=== PATIENT | female | born 1950 | race Asian ===

== ENCOUNTER 2018-01-15 12:10 | Inpatient (IN) | payer MEDICAID ==
[2018-01-15 12:41] LABS: Hematocrit 41.8 % (30.3-42.9); Mean Corpuscular HGB Conc 34 % (30-34); Mean Corpuscular Hemoglobin 31 pg (28-32); Mean Corpuscular Volume 91 fl (79-97); Platelet Count 313 K/mm3 (140-440); Red Blood Count 4.57 M/mm3 (3.65-5.03); Red Cell Distribution Width 12.7 % (13.2-15.2)
[2018-01-15 12:53] LABS: Alanine Aminotransferase 11 units/L (7-56); Albumin 4.3 g/dL (3.9-5); BUN/Creatinine Ratio 19; Blood Urea Nitrogen 13 mg/dL (7-17); Calcium 9.4 mg/dL (8.4-10.2); Hemolysis Index 51
--- NOTE | 2018-01-15 16:27 | Cat Scan Report ---
FINAL REPORT EXAM: CT ABDOMEN PELVIS W CON HISTORY: RLQ MASS TECHNIQUE: Following administration of GI and IV contrast axial helical imaging was performed through the abdomen and pelvis with sagittal and coronal reformatted images obtained. Delayed axial images were also obtained through the abdomen and pelvis. Comparison: None FINDINGS: The lung bases are without infiltrate, pneumothorax or pleural fluid collection. The heart appears to be enlarged. There is evidence of fatty infiltration/steatosis of the liver. The spleen, pancreas, kidneys and adrenal glands are unremarkable in appearance. The gallbladder is moderately distended and unremarkable in appearance. The appendix is enlarged with increased thickness of the wall and increased caliber of approximately 17 millimeters. There is moderate surrounding inflammatory/phlegmonous change. There is edema in the wall of the cecum at the origin of the appendix. There are prominent lymph nodes in the mesentery and right lower quadrant. The largest measures approximately 12 millimeters in size. These are nonspecific in appearance but are most likely inflammatory in nature. The bowel is otherwise normal caliber. There is no evidence of pneumoperitoneum or free fluid. The abdominal aorta is normal caliber. The urinary bladder is moderately distended and unremarkable in appearance. The uterus and adnexa are unremarkable in appearance. The bony structures are unremarkable in appearance. IMPRESSION: 1. Findings most consistent with the appearance of appendicitis. 2. Appearance of fatty infiltration/steatosis of the liver. 3. The heart appears to be enlarged.
[2018-01-15] MEDS ORDERED: ZOFRAN IV PRN (17:15)
[2018-01-15] MEDS ORDERED: SODIUM CHLORIDE FLUSH SYRINGE 10 ML IV PRN (17:15)
[2018-01-15] MEDS ORDERED: MORPHINE IV PRN (18:00)
[2018-01-15] MEDS: D5/0.45NS 1,000 ML IV SCH (19:58)
[2018-01-15] MEDS: MORPHINE IV PRN (20:05)
[2018-01-15] MEDS: SODIUM CHLORIDE FLUSH SYRINGE 10 ML IV SCH (21:37)
[2018-01-15] MEDS ORDERED: ZOSYN/NS 4.5GM/100ML 4.5 GM/100 ML VIAL IV SCH (22:00)
[2018-01-16] MEDS: D5/0.45NS 1,000 ML IV SCH ×2 (03:39→11:36)
[2018-01-16 08:59] LABS: Hematocrit 41.4 % (30.3-42.9); Lymphocytes # (Auto) 1.4 K/mm3 (1.2-5.4); Lymphocytes % (Auto) 21.5 % (13.4-35.0); Mean Corpuscular HGB Conc 34 % (30-34); Mean Corpuscular Hemoglobin 31 pg (28-32); Mean Corpuscular Volume 91 fl (79-97); Monocytes # (Auto) 0.7 K/mm3 (0.0-0.8); Monocytes % (Auto) 10.4 % (0.0-7.3); Platelet Count 261 K/mm3 (140-440); Red Blood Count 4.56 M/mm3 (3.65-5.03)
[2018-01-16 09:13] LABS: BUN/Creatinine Ratio 10; Blood Urea Nitrogen 7 mg/dL (7-17); Calcium 8.7 mg/dL (8.4-10.2); Hemolysis Index 5
--- NOTE | 2018-01-16 10:09 | Event Note ---
Date: 01/16/18 Received a consult for a phlegmon, It was called to me today by nursing staff. I am available over the phone. I called Dr Lora - covering physician to be sure he was aware of CT findings. Patient's vitals signs are stable, there is not fever or leukocytosis. I agree with gregory for now. I will check CRP. I made nursing aware I would be available over the phone. I will see patient on Thursday.
[2018-01-16] MEDS ORDERED: BENADRYL IV ONE (12:00)
--- NOTE | 2018-01-16 12:20 | Consultation ---
History of Present Illness - Reason for Consult Consult date: 01/16/18 medical management - History of Present Illness This is a 67 y/o female who presented to dr Heaton office with c/o RLQ abd pain which was going on for approximately the last 2 wks. She c/o Nausea but no vomiting. She was directly admitted form Dr Heaton office. CT abdomen/pelvis consistent with walled off, well contained appendiceal phlegmon, neg free air or free fluid. She is afebrile w/o any white count. Hospitalist service requested for medical management. Past History Past Medical History: No medical history Past Surgical History: No surgical history Social history: no significant social history Family history: no significant family history Medications and Allergies Allergies Allergy/AdvReac Type Severity Reaction Status Date / Time No Known Allergies Allergy Verified 01/15/18 17:15 Active Meds: Active Medications Dextrose/Sodium Chloride (D5/0.45ns) 1,000 mls @ 125 mls/hr IV DIRECT MIR Last Admin: 01/16/18 11:36 Dose: 125 mls/hr Metronidazole (Flagyl 500 Mg/100 Ml) 500 mg in 100 mls @ 100 mls/hr IV Q8HR MIR ; Protocol Levofloxacin/Dextrose (Levaquin 750mg/150ml) 750 mg in 150 mls @ 150 mls/hr IV Q24H MIR; Protocol Morphine Sulfate (Morphine) 2 mg IV Q3H PRN PRN Reason: Pain, Moderate (4-6) Last Admin: 01/15/18 20:05 Dose: 2 mg Morphine Sulfate (Morphine) 4 mg IV Q3H PRN PRN Reason: Pain , Severe (7-10) Last Admin: 01/16/18 08:33 Dose: 4 mg Ondansetron HCl (Zofran) 4 mg IV Q4H PRN PRN Reason: Nausea And Vomiting Sodium Chloride (Sodium Chloride Flush Syringe 10 Ml) 10 ml IV BID MIR Last Admin: 01/15/18 21:37 Dose: 10 ml Sodium Chloride (Sodium Chloride Flush Syringe 10 Ml) 10 ml IV PRN PRN PRN Reason: LINE FLUSH Review of Systems All systems: negative (nause and RLQ abdominal pain) Exam - Constitutional Vitals: Temp Pulse Resp BP Pulse Ox 98.2 F 75 18 136/73 96 01/16/18 08:03 01/16/18 08:03 01/16/18 08:03 01/16/18 08:03 01/16/18 08:03 General appearance: Present: no acute distress, well-nourished - EENT Eyes: Present: PERRL ENT: hearing intact, clear oral mucosa - Neck Neck: Present: supple, normal ROM - Respiratory Respiratory effort: normal Respiratory: bilateral: CTA - Cardiovascular Heart Sounds: Present: S1 & S2. Absent: rub, click - Extremities Extremities: pulses symmetrical, No edema Peripheral Pulses: within normal limits - Abdominal General gastrointestinal: Present: soft, tender, non-distended, normal bowel sounds Localized gastrointestinal: tender: RUQ - Integumentary Integumentary: Present: warm, dry, rash - Musculoskeletal Musculoskeletal: gait normal, strength equal bilaterally - Psychiatric Psychiatric: appropriate mood/affect, intact judgment & insight - Neurologic Neurologic: CNII-XII intact, moves all extremities Results - Labs CBC & Chem 7: 01/16/18 07:43 01/16/18 07:43 Labs: Abnormal lab results 01/15/18 01/15/18 01/16/18 Range/Units 12:31 12:31 07:43 RDW 12.7 L 13.0 L (13.2-15.2) % [place] % (Auto) 10.4 H (0.0-7.3) % Glucose (65-100) mg/dL Alkaline Phosphatase 139 H (35-129) units/L C-Reactive Protein (0.00-1.30) mg/dL 01/16/18 01/16/18 Range/Units 07:43 07:43 RDW (13.2-15.2) % [place] % (Auto) (0.0-7.3) % Glucose 104 H (65-100) mg/dL Alkaline Phosphatase (35-129) units/L C-Reactive Protein 2.30 H (0.00-1.30) mg/dL - Imaging and Cardiology CT scan - abdomen: report reviewed Assessment and Plan Acute appendicitis with appendiceal phlegmon - likely seconday to perforated appendicitis - Mx per surgery, cont abx, iv fluid for now HTN, BP stable for now Abdominal rash, likely allergic reaction - Agree changing abx to levaquin and flagyl - benadryl as needed DVT Px, SCD till surgery
[2018-01-16] MEDS ORDERED: LEVAQUIN 500MG/100ML 500 MG/100 ML BAG IV SCH (14:00)
[2018-01-16] MEDS: FLAGYL 500 MG/100 ML 500 MG/100 ML BAG IV SCH ×2 (15:14→22:01)
[2018-01-16] MEDS: LEVAQUIN 750MG/150ML 750 MG/150 ML BAG IV SCH (15:16)
--- NOTE | 2018-01-16 15:50 | Progress Note ---
Assessment and Plan 67 y/o female c/o RLQ abd pain for approximately the last 2 wks. c/o N but no vomiting Abd soft. localized RLQ tenderness with palpable mass CT consistent with walled off, well contained appendiceal phlegmon. neg free air or free fluid afebrile wbc 6.6 imp well contained appendiceal phlegmon seconday to perf appendicitis from probably a couple of weeks duration. admit IV antibiotics ID eval clinically stable will attempt primary antibiotic Rx to attempt to reduce phlegmon size in hopes of avoiding R hemicolectomy. keep npo monitor clinically. Dr. Lora will be covering me thru wed Selected Entries 01/16/18 12:00 Temperature 98.3 F Pulse Rate 82 Respiratory 18 Rate Blood Pressure 140/67 [Left] Laboratory Tests 01/15/18 01/16/18 01/16/18 12:31 07:43 07:43 WBC 8.3 6.6 Hgb 14.0 Hct 41.4 Sodium 142 Potassium 3.6 Chloride 101.3 Carbon Dioxide 27 BUN 7 Creatinine 0.7 Objective Vital Signs - 12hr 01/16/18 01/16/18 01/16/18 04:37 08:03 12:00 Temperature 98.5 F 98.2 F 98.3 F Pulse Rate 70 75 82 Respiratory 20 18 18 Rate Blood Pressure 143/77 136/73 Blood Pressure 140/67 [Left] O2 Sat by Pulse 95 96 99 Oximetry - Labs 01/16/18 07:43 01/16/18 07:43 Diabetes panel 01/16/18 Range/Units 07:43 Sodium 142 (137-145) mmol/L Potassium 3.6 (3.6-5.0) mmol/L Chloride 101.3 (98-107) mmol/L Carbon Dioxide 27 (22-30) mmol/L BUN 7 (7-17) mg/dL Creatinine 0.7 (0.7-1.2) mg/dL Glucose 104 H (65-100) mg/dL Calcium 8.7 (8.4-10.2) mg/dL Calcium panel 01/16/18 Range/Units 07:43 Calcium 8.7 (8.4-10.2) mg/dL Pituitary panel 01/16/18 Range/Units 07:43 Sodium 142 (137-145) mmol/L Potassium 3.6 (3.6-5.0) mmol/L Chloride 101.3 (98-107) mmol/L Carbon Dioxide 27 (22-30) mmol/L BUN 7 (7-17) mg/dL Creatinine 0.7 (0.7-1.2) mg/dL Glucose 104 H (65-100) mg/dL Calcium 8.7 (8.4-10.2) mg/dL Adrenal panel 01/16/18 Range/Units 07:43 Sodium 142 (137-145) mmol/L Potassium 3.6 (3.6-5.0) mmol/L Chloride 101.3 (98-107) mmol/L Carbon Dioxide 27 (22-30) mmol/L BUN 7 (7-17) mg/dL Creatinine 0.7 (0.7-1.2) mg/dL Glucose 104 H (65-100) mg/dL Calcium 8.7 (8.4-10.2) mg/dL
--- NOTE | 2018-01-16 17:24 | History and Physical Report ---
ADMITTING DIAGNOSIS: Rule out appendiceal phlegmon. HISTORY OF PRESENT ILLNESS: The patient is a pleasant 67-year-old female who was seen in the office yesterday afternoon with the chief complaint of approximately 2-week history of right lower quadrant abdominal pain. Denied any vomiting though she states she has had some nausea but overall has been keeping her food down without signs of vomiting. PAST MEDICAL HISTORY: Pertinent for hypertension. PAST SURGICAL HISTORY: Negative. ALLERGIES: No known allergies. MEDICATIONS: Atenolol? FAMILY HISTORY: Negative. SOCIAL HISTORY: Denies any smoking or drinking. REVIEW OF SYSTEMS: Noncontributory. PHYSICAL EXAMINATION: GENERAL: At this time reveals the patient to be awake, alert, cooperative and feeling somewhat better from yesterday evening. As previously mentioned, the patient was seen in the office yesterday evening and sent over to the ER for further workup. At that time, a CT was done, which revealed an appendiceal phlegmon. VITAL SIGNS: Show her to currently be afebrile, temperature 98.3, blood pressure is 140/67, pulse of 82, respirations of 18. HEENT: Pupils are equal and reactive to light and accommodation. Sclerae are nonicteric. NECK: Supple. No thyromegaly or adenopathy. CHEST: Lungs are clear to auscultation and percussion. HEART: Normal sinus rhythm. No gross murmurs. ABDOMEN: Examination of the abdomen reveals to be moderately obese and soft. There is localized right lower quadrant tenderness although improved from my examination yesterday. There is a palpable mass which again was noted yesterday. Bowel sounds are present. EXTREMITIES: Show full range of motion, no edema or cyanosis. NEUROLOGIC: Examination is grossly within normal limits. LABORATORY AND DIAGNOSTIC DATA: Lab work at present includes CBC which shows a white count of 6.6, down from 8.3 on admission. H and H is stable at 14 and 41.4. Electrolytes are essentially normal. LFTs are also normal. CT scan of the abdomen as previously mentioned reveals a walled off appendiceal phlegmon. No evidence of any free fluid or free air. IMPRESSION AND PLAN: At this time is that of rule out appendiceal phlegmon most likely from a perforated and walled off appendicitis from approximately 2 weeks ago when the patient's symptoms began. Currently, the patient is clinically stable, afebrile and no leukocytosis. We will attempt IV antibiotic treatment as primary treatment at this time in hopes of reducing the size of the phlegmon and hopefully preventing to have to proceed with a right hemicolectomy at this time. I will continue treatment as long as the patient is stable and attempt a semi-elective appendectomy in the near future. However, the patient clinically regresses and begins having temperatures or leukocytosis then would have to contemplate proceeding with exploratory laparotomy and possible right hemicolectomy at this time. ID evaluation will also be obtained. JOB# [id number] NYDIA/EDILMA
[2018-01-16] MEDS: BENADRYL IV PRN (22:01)
[2018-01-16] MEDS: MORPHINE IV PRN (22:01)
[2018-01-16] MEDS: SODIUM CHLORIDE FLUSH SYRINGE 10 ML IV SCH (22:02)
[2018-01-17] MEDS: D5/0.45NS 1,000 ML IV SCH ×2 (03:41→14:05)
[2018-01-17] MEDS: FLAGYL 500 MG/100 ML 500 MG/100 ML BAG IV SCH ×3 (06:00→21:37)
[2018-01-17] MEDS: SODIUM CHLORIDE FLUSH SYRINGE 10 ML IV SCH ×2 (10:00→21:38)
[2018-01-17] MEDS ORDERED: APRESOLINE IV PRN (14:20)
--- NOTE | 2018-01-17 14:20 | Progress Note ---
Assessment and Plan Acute appendicitis with appendiceal phlegmon - likely seconday to perforated appendicitis - Mx per surgery, cont abx, iv fluid for now HTN, place on clonidine patch Abdominal rash, likely allergic reaction - changed zosyn to levaquin and flagyl - benadryl as needed DVT Px, SCD till surgery Subjective Date of service: 01/17/18 Interval history: Pt seen and examined denies any abdominal pain Objective - Exam Narrative Exam: General appearance: Present: no acute distress, well-nourished - EENT Eyes: Present: PERRL ENT: hearing intact, clear oral mucosa - Neck Neck: Present: supple, normal ROM - Respiratory Respiratory effort: normal Respiratory: bilateral: CTA - Cardiovascular Heart Sounds: Present: S1 & S2. Absent: rub, click - Extremities Extremities: pulses symmetrical, No edema Peripheral Pulses: within normal limits - Abdominal General gastrointestinal: Present: soft, nontender, non-distended, normal bowel sounds - Integumentary Integumentary: Present: warm, dry, rash - Musculoskeletal Musculoskeletal: gait normal, strength equal bilaterally - Psychiatric Psychiatric: appropriate mood/affect, intact judgment & insight - Neurologic Neurologic: CNII-XII intact, moves all extremities - Constitutional Vitals: Vital Signs - 12hr 01/17/18 01/17/18 07:07 11:15 Temperature 98.2 F 98.3 F Pulse Rate 75 76 Respiratory 16 18 Rate Blood Pressure 117/63 159/73 O2 Sat by Pulse 92 95 Oximetry - Labs CBC & Chem 7: 01/16/18 07:43 01/16/18 07:43
[2018-01-17] MEDS: LEVAQUIN 750MG/150ML 750 MG/150 ML BAG IV SCH (15:30)
[2018-01-17] MEDS ORDERED: CATAPRES-TTS PATCH TD SCH (22:00)
[2018-01-18] MEDS: D5/0.45NS 1,000 ML IV SCH ×3 (00:31→20:44)
[2018-01-18] MEDS: FLAGYL 500 MG/100 ML 500 MG/100 ML BAG IV SCH ×3 (05:17→22:40)
[2018-01-18] MEDS: SODIUM CHLORIDE FLUSH SYRINGE 10 ML IV SCH ×3 (10:18→22:40)
--- NOTE | 2018-01-18 10:40 | Consultation ---
History of Present Illness - Reason for Consult Consult date: 01/18/18 appendiceal phlegmon Requesting physician: HCAIM GOODEN - History of Present Illness 67 years old female with history of HTN, originally from [place], came to [facility] 8 years ago, admitted on 01/15/18 due to 2 week-history of abdominal pain. Patient reports that 2 weeks ago she experienced 10 out of 10 acute right lower quadrant abdominal pain associated with mild nausea. Denies vomiting or fever. She thought she pulled a muscle after lifting a heavy object. Pain resolved by itself. She kept a good appetite. She then went to visit his PCP Dr Amador who told her about r/o appendicitis. A CT abdomen/pelvis showed appendicitis with well contained appendiceal phlegmon, neg free air or free fluid. In the ED, initial temperature 90.8, heart rate 74, respiration 18, O2 sat 98%, blood pressure 196/91. Initial white count on 8.3. Hemoglobin 14. Platelets 313. Creatinine is 0.7. CRP 2.3. Patient was placed on Zosyn IV, unfortunately developed an erythematous pruritic rash on Zosyn. Microbiology: Blood cultures: Urine cultures: Respiratory cultures: Wound cultures: Stool cultures: Other: Current Antimicrobials: Levaquin 01/17 Metronidazole 01/17 Previous Antimicrobials: Zosyn Past History Past Medical History: No medical history Past Surgical History: No surgical history Social history: no significant social history Family history: no significant family history Medications and Allergies Allergies Allergy/AdvReac Type Severity Reaction Status Date / Time No Known Allergies Allergy Verified 01/15/18 17:15 Home Medications Medication Instructions Recorded Confirmed Last Taken Type Atenolol [Tenormin] 100 mg PO DAILY 01/17/18 01/17/18 Unknown History Active Meds: Active Medications Clonidine HCl (Catapres-Tts Patch) 0.1 mg TD QWEEK MIR Last Admin: 01/17/18 21:43 Dose: 0.1 mg Diphenhydramine HCl (Benadryl) 50 mg IV Q6H PRN PRN Reason: Itching Last Admin: 01/16/18 22:01 Dose: 50 mg Hydralazine HCl (Apresoline) 5 mg IV Q30MIN PRN PRN Reason: Hypertension Dextrose/Sodium Chloride (D5/0.45ns) 1,000 mls @ 125 mls/hr IV DIRECT MIR Last Admin: 01/18/18 10:17 Dose: 125 mls/hr Metronidazole (Flagyl 500 Mg/100 Ml) 500 mg in 100 mls @ 100 mls/hr IV Q8HR MIR ; Protocol Last Admin: 01/18/18 05:17 Dose: 100 mls/hr Levofloxacin/Dextrose (Levaquin 750mg/150ml) 750 mg in 150 mls @ 150 mls/hr IV Q24H MIR; Protocol Last Admin: 01/17/18 15:30 Dose: 150 mls/hr Morphine Sulfate (Morphine) 2 mg IV Q3H PRN PRN Reason: Pain, Moderate (4-6) Last Admin: 01/16/18 22:01 Dose: 2 mg Morphine Sulfate (Morphine) 4 mg IV Q3H PRN PRN Reason: Pain , Severe (7-10) Last Admin: 01/16/18 08:33 Dose: 4 mg Ondansetron HCl (Zofran) 4 mg IV Q4H PRN PRN Reason: Nausea And Vomiting Last Admin: 01/16/18 22:04 Dose: 4 mg Sodium Chloride (Sodium Chloride Flush Syringe 10 Ml) 10 ml IV BID MIR Last Admin: 01/18/18 10:18 Dose: 10 ml Sodium Chloride (Sodium Chloride Flush Syringe 10 Ml) 10 ml IV PRN PRN PRN Reason: LINE FLUSH Review of Systems All systems: negative (as per HPI) Physical Examination - Physical Exam Narrative exam: General appearance: Alert in NAD, conversant Eyes: anicteric sclerae, moist conjunctivae; no lid-lag; PERRLA HENT: Atraumatic; oropharynx clear Neck: Trachea midline; supple, no thyromegaly or lymphadenopathy Lungs: CTA, with normal respiratory effort and no intercostal retractions CV: RRR, no murmurs Abdomen: Soft, mild RLQ tenderness, no rebound Extremities: No peripheral edema or extremity lymphadenopathy Skin: Normal temperature, turgor and texture; no rash, ulcers or subcutaneous nodules Psych: Appropriate affect, alert and oriented to person, place and time. Neuro: alert and oriented x 3. Moving all extermities Lines: No CVL / PICC - Constitutional Vitals: Vital Signs Temp Pulse Resp BP Pulse Ox 98.1 F 69 18 159/85 95 01/18/18 08:17 01/18/18 08:17 01/18/18 08:17 01/18/18 08:17 01/18/18 08:17 Temperature -Last 24 Hours Temperature 98.1 F Temperature 98.4 F Temperature 98.5 F Temperature 98.0 F Temperature 98 F Temperature 98.3 F Results - Labs CBC & Chem 7: 01/16/18 07:43 01/16/18 07:43 Assessment and Plan Assessment: 1) Missed appendicitis with Appendiceal phlegmon -CT abdomen/pelvis showed appendicitis with well contained appendiceal phlegmon about 1.7 cm, neg free air or free fluid -CRP 2.3 -no leukocytosis, no fever 2) HTN 3) Rash due to Zosyn. Plan: -continue levaquin and flagyl -repeat CT in 1 week on 01/22 -upon discharge will continue levaquin 750 mg po qday and flagyl 500 mg po q8h total 14 days until 02/01 -ID clinic f/u on 01/28 Thank you for your consultation, will follow up with you. Dilcia Byrnes MD Infectious Diseases Specialist [facility] ([facility] M [phone] O [phone]
--- NOTE | 2018-01-18 13:21 | Progress Note ---
Subjective Narrative: Dr Washburn is seeing the Pt will see PRN , please call Objective Vital Signs - 12hr 01/18/18 01/18/18 03:48 08:17 Temperature 98.4 F 98.1 F Pulse Rate 69 69 Respiratory 18 18 Rate Blood Pressure 134/75 159/85 O2 Sat by Pulse 96 95 Oximetry - Labs 01/16/18 07:43 01/16/18 07:43
[2018-01-18] MEDS: LEVAQUIN 750MG/150ML 750 MG/150 ML BAG IV SCH (14:59)
[2018-01-18] MEDS: BENADRYL IV PRN (23:46)
--- NOTE | 2018-01-19 01:28 | Progress Note ---
Assessment and Plan Acute appendicitis with appendiceal phlegmon - likely secondary to perforated appendicitis - Mx per surgery, cont abx, iv fluid for now - ID consulted HTN, place on clonidine patch Abdominal rash, likely allergic reaction - changed zosyn to levaquin and flagyl - benadryl as needed DVT Px, SCD Subjective Date of service: 01/18/18 Interval history: Pt seen and examined denies any abdominal pain no fever Objective - Exam Narrative Exam: General appearance: Present: no acute distress, well-nourished - EENT Eyes: Present: PERRL ENT: hearing intact, clear oral mucosa - Neck Neck: Present: supple, normal ROM - Respiratory Respiratory effort: normal Respiratory: bilateral: CTA - Cardiovascular Heart Sounds: Present: S1 & S2. Absent: rub, click - Extremities Extremities: pulses symmetrical, No edema Peripheral Pulses: within normal limits - Abdominal General gastrointestinal: Present: soft, nontender, non-distended, normal bowel sounds - Integumentary Integumentary: Present: warm, dry, rash - Musculoskeletal Musculoskeletal: gait normal, strength equal bilaterally - Psychiatric Psychiatric: appropriate mood/affect, intact judgment & insight - Neurologic Neurologic: CNII-XII intact, moves all extremities - Constitutional Vitals: Vital Signs - 12hr 01/18/18 01/18/18 17:11 19:47 Temperature 99.0 F 98.1 F Pulse Rate 100 H 93 H Respiratory 18 20 Rate Blood Pressure 151/99 146/91 O2 Sat by Pulse 97 97 Oximetry - Labs CBC & Chem 7: 01/16/18 07:43 01/16/18 07:43
[2018-01-19] MEDS: FLAGYL 500 MG/100 ML 500 MG/100 ML BAG IV SCH ×3 (05:10→22:13)
[2018-01-19 05:27] LABS: Hematocrit 39.1 % (30.3-42.9); Hemoglobin 13.4 gm/dl (10.1-14.3); Mean Corpuscular HGB Conc 34 % (30-34); Mean Corpuscular Hemoglobin 30 pg (28-32); Mean Corpuscular Volume 89 fl (79-97); Platelet Count 254 K/mm3 (140-440); Red Cell Distribution Width 13.1 % (13.2-15.2)
[2018-01-19 05:51] LABS: BUN/Creatinine Ratio 5; Blood Urea Nitrogen 4 mg/dL (7-17); Calcium 8.8 mg/dL (8.4-10.2); Hemolysis Index 0
[2018-01-19] MEDS: D5/0.45NS 1,000 ML IV SCH ×2 (06:26→14:02)
[2018-01-19] MEDS: SODIUM CHLORIDE FLUSH SYRINGE 10 ML IV SCH (11:39)
--- NOTE | 2018-01-19 12:37 | Progress Note ---
Assessment and Plan Assessment and plan: Hospitalist Consult for Medical management of Hypertension Ms. Jang is 67 yo woman who speaks Georgian without any chronic medical problems who was sent from Dr. Estevez's office for direct admission for appendicitis * CT abd/pelvis IV contrast IMPRESSION: 1. Findings most consistent with the appearance of appendicitis. 2. Appearance of fatty infiltration/steatosis of the liver. 3. The heart appears to be enlarged. -HTN, stable: placed on clonidine patch and IV hydralazine Acute appendicitis with appendiceal phlegmon - likely secondary to perforated appendicitis - Mx per surgery, cont abx, iv fluid for now - OR today? - ID consulted Abdominal rash, likely allergic reaction - changed zosyn to levaquin and flagyl - benadryl as needed DVT Px, SCD History Interval history: Patient was seen and examined. Follow-up on current diagnosis of abd pains. Overnight uneventful. Patient denies any chest pain, shortness breath, nausea/ vomiting or severe headaches. Imaging, nursing note, chart, labs and old chart reviewed. Discussed with patient. Hospitalist Physical - Physical exam Narrative exam: GEN: WDWN, NAD, Awake, Alert, Orientated HEENT: NCAT, EOMI, PERRL, OP Clear NECK: supple, no adenopathy, no thyromegaly, no JVD CVS/HEART: RRR, normal S1S2, pulses present bilaterally CHEST/LUNGS: CTA B, Symmetrical chest expansion, good air entry bilaterally GI/Abdomen: soft, right lower tenderness, nondistended, good bowel sounds, no guarding or rebound /Bladder: no suprapubic tenderness, no CVA or paraspinal tenderness EXT/Skin: no c/c/e, no obvious rash MSK: FROM x 4 Neuro: CN 2-12 grossly intact, no new focal deficits Psych: calm - Constitutional Vitals: Temp Pulse Resp BP Pulse Ox 98.2 F 92 H 18 162/99 96 01/19/18 08:32 01/19/18 08:32 01/19/18 08:32 01/19/18 08:32 01/19/18 08:32 General appearance: Present: no acute distress, well-nourished Results - Labs CBC & Chem 7: 01/19/18 04:38 01/19/18 04:38 Labs: Laboratory Last Values WBC 5.5 K/mm3 (4.5-11.0) 01/19/18 04:38 RBC 4.40 M/mm3 (3.65-5.03) 01/19/18 04:38 Hgb 13.4 gm/dl (10.1-14.3) 01/19/18 04:38 Hct 39.1 % (30.3-42.9) 01/19/18 04:38 MCV 89 fl (79-97) 01/19/18 04:38 MCH 30 pg (28-32) 01/19/18 04:38 MCHC 34 % (30-34) 01/19/18 04:38 RDW 13.1 % (13.2-15.2) L 01/19/18 04:38 Plt Count 254 K/mm3 (140-440) 01/19/18 04:38 Lymph % (Auto) 21.5 % (13.4-35.0) 01/16/18 07:43 [place] % (Auto) 10.4 % (0.0-7.3) H 01/16/18 07:43 Eos % (Auto) 0.0 % (0.0-4.3) 01/16/18 07:43 Baso % (Auto) 0.0 % (0.0-1.8) 01/16/18 07:43 Lymph # 1.4 K/mm3 (1.2-5.4) 01/16/18 07:43 [place] # 0.7 K/mm3 (0.0-0.8) 01/16/18 07:43 Eos # 0.0 K/mm3 (0.0-0.4) 01/16/18 07:43 Baso # 0.0 K/mm3 (0.0-0.1) 01/16/18 07:43 Seg Neutrophils % 68.1 % (40.0-70.0) 01/16/18 07:43 Seg Neutrophils # 4.5 K/mm3 (1.8-7.7) 01/16/18 07:43 Sodium 147 mmol/L (137-145) H 01/19/18 04:38 Potassium 3.6 mmol/L (3.6-5.0) 01/19/18 04:38 Chloride 107.2 mmol/L (98-107) H 01/19/18 04:38 Carbon Dioxide 27 mmol/L (22-30) 01/19/18 04:38 Anion Gap 16 mmol/L 01/19/18 04:38 BUN 4 mg/dL (7-17) L 01/19/18 04:38 Creatinine 0.8 mg/dL (0.7-1.2) 01/19/18 04:38 Estimated GFR > 60 ml/min 01/19/18 04:38 BUN/Creatinine Ratio 5 % 01/19/18 04:38 Glucose 112 mg/dL (65-100) H 01/19/18 04:38 Calcium 8.8 mg/dL (8.4-10.2) 01/19/18 04:38 Total Bilirubin 0.20 mg/dL (0.1-1.2) 01/15/18 12:31 AST 20 units/L (5-40) 01/15/18 12:31 ALT 11 units/L (7-56) 01/15/18 12:31 Alkaline Phosphatase 139 units/L (35-129) H 01/15/18 12:31 C-Reactive Protein 2.30 mg/dL (0.00-1.30) H 01/16/18 07:43 Total Protein 7.9 g/dL (6.3-8.2) 01/15/18 12:31 Albumin 4.3 g/dL (3.9-5) 01/15/18 12:31 Albumin/Globulin Ratio 1.2 % 01/15/18 12:31
[2018-01-19] MEDS ORDERED: ZOFRAN IV PRN (14:31)
[2018-01-19] MEDS ORDERED: DEMEROL IV PRN (14:31)
[2018-01-19] MEDS ORDERED: TORADOL IV PRN (14:31)
[2018-01-19] MEDS ORDERED: LACTATED RINGERS 1,000 ML IV SCH ×2 (15:00)
[2018-01-19] MEDS ORDERED: VERSED IV NR (15:00)
[2018-01-19] MEDS ORDERED: ZEMURON IV ONE (15:00)
[2018-01-19] MEDS: LEVAQUIN 750MG/150ML 750 MG/150 ML BAG IV SCH (15:04)
[2018-01-19] MEDS ORDERED: SUBLIMAZE ONE ×2 (15:08→17:34)
[2018-01-19] MEDS ORDERED: ZOFRAN ONE (15:08)
[2018-01-19] MEDS ORDERED: DECADRON ONE (15:08)
[2018-01-19] MEDS ORDERED: DIPRIVAN 10 MG/ML IV ONE (15:08)
[2018-01-19] MEDS ORDERED: XYLOCAINE MPF 2% ONE (15:08)
--- NOTE | 2018-01-19 15:10 | Anesthesia Day of Surgery ---
Anesthesia Day of Surgery - Day of Surgery Patient Examined: Yes Patient H&P Reviewed: Yes Patient is NPO: Yes
[2018-01-19] MEDS ORDERED: MARCAINE 0.5% 0 ML INFILTRATI ONE (15:11)
--- NOTE | 2018-01-19 15:11 | Anesthesia Consultation ---
Anesthesia Consult and Med Hx Date of service: 01/19/18 - Airway Anesthetic Teeth Evaluation: Good ROM Head & Neck: Adequate Mental/Hyoid Distance: Adequate Mallampati Class: Class II Intubation Access Assessment: Probably Good - Pulmonary Exam CTA: Yes - Cardiac Exam Cardiac Exam: RRR - Pre-Operative Health Status ASA Pre-Surgery Classification: ASA2 Proposed Anesthetic Plan: General (GERD controlled, HTN, denies tob hx) - Pulmonary Hx Asthma: No COPD: No Hx Pneumonia: No - Endocrine Hx End Stage Renal Disease: No
[2018-01-19] MEDS ORDERED: ROBINUL ONE (17:27)
[2018-01-19] MEDS ORDERED: BLOXIVERZ ONE (17:27)
[2018-01-19] MEDS ORDERED: NACL 0.9% IR ONE (17:42)
[2018-01-19] MEDS: DILAUDID IV PRN ×2 (18:40→18:57)
--- NOTE | 2018-01-19 18:53 | Progress Note ---
Assessment and Plan Assessment: 1) Missed appendicitis with Appendiceal phlegmon -CT abdomen/pelvis showed appendicitis with well contained appendiceal phlegmon about 1.7 cm, neg free air or free fluid -CRP 2.3 -no leukocytosis, no fever 2) HTN 3) Rash due to Zosyn. Plan: -continue levaquin and flagyl -go to the OR today for lap appendectomy today -upon discharge will continue levaquin 750 mg po qday and flagyl 500 mg po q8h total 14 days until 02/01 Thank you for your consultation, will follow up with you. Dilcia Byrnes MD Infectious Diseases Specialist [facility] ([facility]) M [phone] O [phone] Subjective Date of service: 01/19/18 Principal diagnosis: appendicitis Interval history: Feels better, no fever. Microbiology: none Current Antimicrobials: Levaquin 01/17 Metronidazole 01/17 Previous Antimicrobials: Zosyn Objective - Exam Narrative Exam: General appearance: Alert in NAD, conversant Eyes: anicteric sclerae, moist conjunctivae; no lid-lag; PERRLA HENT: Atraumatic; oropharynx clear Neck: Trachea midline; supple, no thyromegaly or lymphadenopathy Lungs: CTA, with normal respiratory effort and no intercostal retractions CV: RRR, no murmurs Abdomen: Soft, mild RLQ tenderness, no rebound Extremities: No peripheral edema or extremity lymphadenopathy Skin: Normal temperature, turgor and texture; no rash, ulcers or subcutaneous nodules Psych: Appropriate affect, alert and oriented to person, place and time. Neuro: alert and oriented x 3. Moving all extermities Lines: No CVL / PICC - Constitutional Vitals: Vital Signs Temp Pulse Resp BP Pulse Ox 98.1 F 92 H 16 153/82 97 01/19/18 12:47 01/19/18 12:47 01/19/18 18:40 01/19/18 12:47 01/19/18 12:47 Temperature -Last 24 Hours Temperature 98.1 F Temperature 98.2 F Temperature 98.2 F Temperature 98.3 F Temperature 98.1 F - Labs CBC & Chem 7: 01/19/18 04:38 01/19/18 04:38 Labs: Abnormal lab results 01/19/18 01/19/18 Range/Units 04:38 04:38 RDW 13.1 L (13.2-15.2) % Sodium 147 H (137-145) mmol/L Chloride 107.2 H (98-107) mmol/L BUN 4 L (7-17) mg/dL Glucose 112 H (65-100) mg/dL
[2018-01-19] MEDS: MORPHINE IV PRN (20:31)
[2018-01-19] MEDS: BENADRYL IV PRN (20:31)
--- NOTE | 2018-01-20 02:21 | Operative Report ---
PREOPERATIVE DIAGNOSIS: Acute appendicitis. POSTOPERATIVE DIAGNOSIS: Acute appendicitis. SURGERY: Laparoscopic appendectomy. ANESTHESIA: General. BLOOD LOSS: Minimal. FINDINGS: The patient had a short, severely inflamed and coiled appendix. It was embedded within the retroperitoneum and loops of small intestines and had to dissect these slowly to reach the base of the appendix. We took picture of that. DESCRIPTION OF PROCEDURE: With the patient in supine position, after cleansing and draping in usual fashion, I made a small incision in the right lower quadrant, with the Veress needle, I was able to do CO2 of pressure 15 for which #5 trocar was inserted. With use of #5 camera, I was able to introduce 3 more trocars, one #10 in the infraumbilical area, another 5 in the mid lower abdomen, and another 5 in the left lower abdomen. Examination of the area showed the above, so I had slowly to dissect these bit by bit to reach the base of the appendix that was seen, it was about 5-6 mm. At that point, it was transected using the Endo-CARINE for that purpose. Then, the appendix was removed in toto with an EndoCatch. Bleeders were taken care for with the use of caudal cautery. The area was then irrigated with sterile normal saline, was very much satisfied. Then I removed the trocars one by one ascertaining no bleeding from the suture site. The fascia was then closed with #0 Vicryl [id number] and the skin incisions were closed with use of 4-0 Vicryl in the usual fashion. Bandages were applied. The patient was then transferred to the recovery room in good condition. We kept the Rodriguez and we will take it out tomorrow. JOB# [id number] TRISTAN/EDILMA
[2018-01-20] MEDS: MORPHINE IV PRN (04:24)
[2018-01-20] MEDS: FLAGYL 500 MG/100 ML 500 MG/100 ML BAG IV SCH ×2 (06:27→14:20)
--- NOTE | 2018-01-20 10:47 | Progress Note ---
Assessment and Plan Assessment: 1) Missed appendicitis with Appendiceal phlegmon -CT abdomen/pelvis showed appendicitis with well contained appendiceal phlegmon about 1.7 cm, neg free air or free fluid -CRP 2.3 -no leukocytosis, no fever -S/P lap appendectomy on 01/19 2) HTN 3) Rash due to Zosyn. Plan: -continue levaquin and flagyl -no cultures available -upon discharge will continue levaquin 750 mg po qday and flagyl 500 mg po q8h total 14 days until 02/01 Thank you for your consultation, will follow up with you. Dilcia Byrnes MD Infectious Diseases Specialist [facility] ([facility]) M [phone] O [phone] Subjective Date of service: 01/20/18 Principal diagnosis: appendicitis Interval history: Feels better, no fever. Underwent appendectomy yesterday. Microbiology: none Current Antimicrobials: Levaquin 01/17 Metronidazole 01/17 Previous Antimicrobials: Zosyn Objective - Exam Narrative Exam: General appearance: Alert in NAD, conversant Eyes: anicteric sclerae, moist conjunctivae; no lid-lag; PERRLA HENT: Atraumatic; oropharynx clear Neck: Trachea midline; supple, no thyromegaly or lymphadenopathy Lungs: CTA, with normal respiratory effort and no intercostal retractions CV: RRR, no murmurs Abdomen: Soft, surg wound Extremities: No peripheral edema or extremity lymphadenopathy Skin: Normal temperature, turgor and texture; no rash, ulcers or subcutaneous nodules Psych: Appropriate affect, alert and oriented to person, place and time. Neuro: alert and oriented x 3. Moving all extermities Lines: No CVL / PICC - Constitutional Vitals: Vital Signs Temp Pulse Resp BP Pulse Ox 98.1 F 70 18 145/75 98 01/20/18 04:24 01/20/18 04:24 01/20/18 04:24 01/20/18 04:24 01/20/18 04:24 Temperature -Last 24 Hours Temperature 98.1 F Temperature 98.2 F Temperature 98.1 F Temperature 98.1 F Temperature 97.8 F Temperature 98.1 F - Labs CBC & Chem 7: 01/19/18 04:38 01/19/18 04:38
--- NOTE | 2018-01-20 10:59 | Query- Abnormal Electrolytes ---
Anderson Alexander Andres Date:____01/20/18 Occupational Therapy Director/CDS: gopal Phone#:____[phone] Exercise your independent professional judgment when responding to this query. Questions asked do not imply a particular answer is desired or expected. We greatly appreciate your clarification on this issue. Clinical Documentation States: Ms. Jang is 67 yo woman who speaks Pashto without any chronic medical problems who was sent from Dr. Estevez's office for direct admission for appendicitis. Assessment and plan: Taken from progress note () on 01/19/18. Acute appendicitis with appendiceal phlegmon HTN, stable Abdominal rash, likely allergic reaction Clinical Findings Show: 01/16/18 01/19/18 Sodium 142 147 Can you please clarify whether you mean? [ ] Hyponatremia [ ] Hypokalemia [ ] Hypocalcemia [ ] Hypomagnesemia [ ] Hypernatremia [ ] Hyperkalemia [ ] Hypercalcemia [ ] Hypermagnesemia [ ] Sodium deficiency [ ] Potassium deficiency [ ] Hypochloremia [ ] Sodium excess [ ] Potassium excess [ ] Hyperchloremia [ ] Sodium overload [ ] Potassium overload [ ] Hypophosphatemia [ ] Hyperphosphatemia Acidosis; [ ] Respiratory [ ] Metabolic Alkalosis; [ ] Respiratory [ ] Metabolic [ ] Other: [ ] Comment/Explanation: Present on Admission: [ ] Yes (Y) [x ] Clinically undeterminable (W) [ ]No(N) Please also document response in your Progress Notes and/or Discharge Summary and indicate if the condition was present on admission. SAMANTHA
--- NOTE | 2018-01-20 11:54 | Progress Note ---
Assessment and Plan Assessment and plan: Hospitalist Consult for Medical management of Hypertension Ms. Jang is 67 yo woman who speaks Urdu without any chronic medical problems who was sent from Dr. Estevez's office for direct admission for appendicitis * CT abd/pelvis IV contrast IMPRESSION: 1. Findings most consistent with the appearance of appendicitis. 2. Appearance of fatty infiltration/steatosis of the liver. 3. The heart appears to be enlarged. -HTN, stable: placed on clonidine patch and IV hydralazine while NPO -Acute appendicitis with appendiceal phlegmon - Mx per surgery, cont abx, iv fluid for now - OR 01/19/[address] Lora - ID consulted Abdominal rash, likely allergic reaction - changed zosyn to levaquin and flagyl - benadryl as needed ID wants levaquin/flagyl until 02/01/18. History Interval history: Patient was seen and examined. Follow-up on current diagnosis of abd pains. Overnight uneventful. Patient denies any chest pain, shortness breath, nausea/ vomiting or severe headaches. Imaging, nursing note, chart, labs and old chart reviewed. Discussed with patient. Hospitalist Physical - Physical exam Narrative exam: GEN: WDWN, NAD, Awake, Alert, Orientated x 3 HEENT: NCAT, EOMI, PERRL, OP Clear NECK: supple, no adenopathy, no thyromegaly, no JVD CVS/HEART: RRR, normal S1S2, pulses present bilaterally CHEST/LUNGS: CTA B, Symmetrical chest expansion, good air entry bilaterally GI/Abdomen: soft, lap appy surgical wound c/d/i, good bowel sounds, no guarding or rebound /Bladder: no suprapubic tenderness, no CVA or paraspinal tenderness EXT/Skin: no c/c/e, no obvious rash MSK: FROM x 4 Neuro: CN 2-12 grossly intact, no new focal deficits Psych: calm - Constitutional Vitals: Temp Pulse Resp BP Pulse Ox 98.1 F 70 18 145/75 96 01/20/18 04:24 01/20/18 04:24 01/20/18 04:24 01/20/18 04:24 01/20/18 07:55 General appearance: Present: no acute distress, well-nourished Results - Labs CBC & Chem 7: 01/19/18 04:38 07/31/18 04:38 Labs: Laboratory Last Values WBC 5.5 K/mm3 (4.5-11.0) 01/19/18 04:38 RBC 4.40 M/mm3 (3.65-5.03) 01/19/18 04:38 Hgb 13.4 gm/dl (10.1-14.3) 01/19/18 04:38 Hct 39.1 % (30.3-42.9) 01/19/18 04:38 MCV 89 fl (79-97) 01/19/18 04:38 MCH 30 pg (28-32) 01/19/18 04:38 MCHC 34 % (30-34) 01/19/18 04:38 RDW 13.1 % (13.2-15.2) L 01/19/18 04:38 Plt Count 254 K/mm3 (140-440) 01/19/18 04:38 Lymph % (Auto) 21.5 % (13.4-35.0) 01/16/18 07:43 [place] % (Auto) 10.4 % (0.0-7.3) H 01/16/18 07:43 Eos % (Auto) 0.0 % (0.0-4.3) 01/16/18 07:43 Baso % (Auto) 0.0 % (0.0-1.8) 01/16/18 07:43 Lymph # 1.4 K/mm3 (1.2-5.4) 01/16/18 07:43 [place] # 0.7 K/mm3 (0.0-0.8) 01/16/18 07:43 Eos # 0.0 K/mm3 (0.0-0.4) 01/16/18 07:43 Baso # 0.0 K/mm3 (0.0-0.1) 01/16/18 07:43 Seg Neutrophils % 68.1 % (40.0-70.0) 01/16/18 07:43 Seg Neutrophils # 4.5 K/mm3 (1.8-7.7) 01/16/18 07:43 Sodium 147 mmol/L (137-145) H 01/19/18 04:38 Potassium 3.6 mmol/L (3.6-5.0) 01/19/18 04:38 Chloride 107.2 mmol/L (98-107) H 01/19/18 04:38 Carbon Dioxide 27 mmol/L (22-30) 01/19/18 04:38 Anion Gap 16 mmol/L 01/19/18 04:38 BUN 4 mg/dL (7-17) L 01/19/18 04:38 Creatinine 0.8 mg/dL (0.7-1.2) 01/19/18 04:38 Estimated GFR > 60 ml/min 01/19/18 04:38 BUN/Creatinine Ratio 5 % 01/19/18 04:38 Glucose 112 mg/dL (65-100) H 01/19/18 04:38 Calcium 8.8 mg/dL (8.4-10.2) 01/19/18 04:38 Total Bilirubin 0.20 mg/dL (0.1-1.2) 01/15/18 12:31 AST 20 units/L (5-40) 01/15/18 12:31 ALT 11 units/L (7-56) 01/15/18 12:31 Alkaline Phosphatase 139 units/L (35-129) H 01/15/18 12:31 C-Reactive Protein 2.30 mg/dL (0.00-1.30) H 01/16/18 07:43 Total Protein 7.9 g/dL (6.3-8.2) 01/15/18 12:31 Albumin 4.3 g/dL (3.9-5) 01/15/18 12:31 Albumin/Globulin Ratio 1.2 % 01/15/18 12:31
--- NOTE | 2018-01-20 15:15 | Progress Note ---
Subjective Patient Reports: Positive: feels better, pain is less, flatus Narrative: doing fine , abd soft wounds clean brian tday on antibiotics , to see me in 10 days ,No driving Objective Vital Signs - 12hr 01/20/18 01/20/18 01/20/18 04:24 07:10 07:11 Temperature 98.1 F 98.2 F Pulse Rate 70 68 66 Respiratory 18 18 Rate Blood Pressure 145/75 137/75 Blood Pressure [Left] O2 Sat by Pulse 98 96 97 Oximetry 01/20/18 01/20/18 07:55 12:00 Temperature 97.5 F L Pulse Rate 76 Respiratory 18 Rate Blood Pressure Blood Pressure 142/72 [Left] O2 Sat by Pulse 96 Oximetry - Labs 01/19/18 04:38 01/19/18 04:38
[2018-01-20] MEDS: LEVAQUIN 750MG/150ML 750 MG/150 ML BAG IV SCH (15:17)
[2018-01-20 17:11] VITALS: BP 156/77
[2018-01-24] MEDS ORDERED: CATAPRES-TTS PATCH TD SCH (10:00)
== END 2018-01-20 18:15 | disposition home or self-care (01) | DRG 340 ==
LOC: CT 12:10 → 2B-ACE 17:09 → 3B-SURG 17:30
PROVIDERS: ADMIT Surgery; ATTEND Surgery
PROC: 0DTJ4ZZ Resection of Appendix, Percutaneous Endoscopic Approach (ICD-10-PCS; principal; 2018-01-19)
DX: K35.3 Acute appendicitis with localized peritonitis (principal); I10 Essential (primary) hypertension; K76.0 Fatty (change of) liver, not elsewhere classified; L27.0 Generalized skin eruption due to drugs and medicaments taken internally; T36.0X5A Adverse effect of penicillins, initial encounter; Y92.89 Other specified places as the place of occurrence of the external cause; K21.9 Gastro-esophageal reflux disease without esophagitis
CPT/HCPCS: 36415; 74177; 80048; 80053; 85025; 85027; 86140; 88304; J1100; J1170; J1200; J1956; J2270; J2405; J2543; J2704; J2710; J3010; J7120; Q9967

== ENCOUNTER 2020-01-23 17:09 | Inpatient (IN) | payer MEDICAID, OTHER ==
--- NOTE | 2020-01-23 17:54 | Event Note ---
ED Screening Note ED Screening Note: n/v for two months no appetite +abd bloating generalized weakness lost 40 lbs in two months no abd pain no difficulty swallowing no fever no diarrhea no vaginal bleeding no rectal bleeding PMHx HTN has not seen a doctor in 2 years, Dr. Amador This initial assessment/diagnostic orders/clinical plan/treatment(s) is/are subject to change based on patients health status, clinical progression and re- assessment by fellow clinical providers in the ED. Further treatment and workup at subsequent clinical providers discretion. Patient/guardian urged not to elope from the ED as their condition may be serious if not clinically assessed and managed. Initial orders include: labs, CT, UA
[2020-01-23 19:36] LABS: Mean Corpuscular HGB Conc 34 % (30-34); Red Blood Count 0.78 M/mm3 (3.65-5.03)
[2020-01-23 19:41] LABS: Bilirubin,Urine NEG (Negative); Blood,Urine NEG (Negative); Color,Urine Yellow (Yellow); Hyaline Casts,Urine 1 /LPF; Mucus,Urine FEW /HPF; Protein,Urine <15 mg/dL mg/dL (Negative)
[2020-01-23 19:49] LABS: Mean Corpuscular Volume 140 fl (79-97); Platelet Count 69 K/mm3 (140-440); Red Cell Distribution Width 31.2 % (13.2-15.2)
[2020-01-23 19:51] LABS: Hematocrit 10.9 % (30.3-42.9); Hemoglobin 3.7 gm/dl (10.1-14.3)
[2020-01-23] MEDS ORDERED: SODIUM CHLORIDE 0.9% 500 ML 500 ML IV ONE (19:57)
[2020-01-23 19:59] LABS: Albumin 4.2 g/dL (3.9-5); Calcium 8.7 mg/dL (8.4-10.2)
[2020-01-23] MEDS ORDERED: SODIUM CHLORIDE 0.9% 250ML 250 ML IV ONE (20:40)
[2020-01-23 21:31] LABS: Anisocytosis 3+; Basophils % (Manual) 0 % (0.0-1.8); Eosinophils % (Manual) 0 % (0.0-4.3); Macrocytosis 2+; Schistocytes Few; Spherocytes Few; Total Cells Counted 100
[2020-01-23 21:32] LABS: Dimorphic RBC Yes
--- NOTE | 2020-01-23 21:34 | Emergency Department Report ---
HPI - General Chief Complaint: Weakness Time Seen by Provider: 01/23/20 17:50 - HPI HPI: This is a 69-year-old female presents to the emergency department with a complaint of generalized weakness and fatigue, nausea and vomiting, weight loss. Patient has lost about 30 to 40 pounds over the past 2 months. At the beginning of the year the patient says that she increased her exercise but has not been doing it since the virus but continues to lose some weight. The nausea and vomiting worsened over the past few days. She has decreased appetite. She also complains of some abdominal bloating but denies any abdominal pain, back pain, dysuria, vaginal bleeding or discharge, rectal bleeding. Patient says that she has history of hypertension but is not on any medications. She previously used to follow-up with Dr. Amador but has not seen them him in 2 years. Patient does not speak much [place] and the language line translation services were used. ED Past Medical Hx - Past Medical History Previous Medical History?: No Hx Congestive Heart Failure: No Hx Diabetes: No Hx Asthma: No Hx COPD: No - Surgical History Past Surgical History?: No - Social History Smoking Status: Never Smoker Substance Use Type: None - Medications Home Medications: Home Medications Medication Instructions Recorded Confirmed Last Taken Type Atenolol [Tenormin] 100 mg PO DAILY 01/17/18 01/17/18 Unknown History levoFLOXacin [Levaquin] 750 mg PO QDAY #14 tablet 01/20/18 Unknown Rx metroNIDAZOLE [Flagyl] 500 mg PO Q8HR 14 Days tablet 01/20/18 Unknown Rx ED Review of Systems ROS: Stated complaint: N/V/WEAKNESS Other details as noted in HPI Constitutional: weakness. denies: fever Eyes: denies: eye pain, vision change ENT: denies: ear pain, throat pain Respiratory: denies: cough, shortness of breath Cardiovascular: denies: chest pain, palpitations Endocrine: unexplained weight loss Gastrointestinal: nausea, vomiting Genitourinary: denies: dysuria, discharge Musculoskeletal: denies: back pain, arthralgia Skin: denies: rash, lesions Neurological: denies: headache, numbness Physical Exam - Physical Exam Vital Signs: Vital Signs 01/23/20 17:48 Temperature 98 F Pulse Rate 104 H Respiratory 18 Rate Blood Pressure 135/55 O2 Sat by Pulse 98 Oximetry ED Course Vital Signs 01/23/20 17:48 Temperature 98 F Pulse Rate 104 H Respiratory 18 Rate Blood Pressure 135/55 O2 Sat by Pulse 98 Oximetry ED Medical Decision Making - Lab Data Result diagrams: 01/23/20 18:57 01/23/20 18:57 - Radiology Data Radiology results: report reviewed CT ABDOMEN AND PELVIS WITH CONTRAST INDICATION / CLINICAL INFORMATION: N/V, no appetite, weight loss, abd bloating. TECHNIQUE: Axial CT images were obtained through the abdomen and pelvis after 100 cc Omnipaque 300 milligrams percent IV contrast. All CT scans at this location are performed using CT dose reduction for ALARA by means of automated exposure control. COMPARISON: None available. FINDINGS: LOWER CHEST: Increased bronchovascular markings-septal markings with minimum airspace changes LIVER: No significant abnormality. GALLBLADDER: No significant abnormality. BILE DUCTS: No significant abnormality. PANCREAS: No significant abnormality. SPLEEN: No significant abnormality. ADRENALS: No s ignificant abnormality. RIGHT KIDNEY and URETER: No significant abnormality. LEFT KIDNEY and URETER: No significant abnormality. STOMACH and SMALL BOWEL: No significant abnormality. COLON: No significant abnormality. APPENDIX: Previous appendectomy PERITONEUM: No free fluid. No free air. No fluid collection. LYMPH NODES: No significant adenopathy. AORTA and ARTERIES: No significant abnormality. IVC and VEINS: No significant abnormality. URINARY BLADDER: No significant abnormality. REPRODUCTIVE ORGANS: No significant abnormality. ADDITIONAL FINDINGS: None. SKELETAL SYSTEM: No significant abnormality. IMPRESSION: 1. Mild pulmonary edema CHEST 1 VIEW 2247 INDICATION / CLINICAL INFORMATION: MAIN COMPARISON: CT abdomen and pelvis today and 01/15/2018 FINDINGS: SUPPORT DEVICES: None HEART / MEDIASTINUM: Mild cardiomegaly LUNGS / PLEURA: Diffuse increased interstitial markings are seen. As seen in the lung bases on CT studies today and in 2018, some chronic interstitial changes are noted. However, I suspect there is also superimposed interstitial edema. Interstitial pneumonitis is not completely excluded. Mild bibasilar atelectatic changes are seen. No dense areas of consolidation are noted though atelectasis is more prominent in the left base as seen on CT today. No pneumothorax. ADDITIONAL FINDINGS: No significant additional findings. IMPRESSION: Bilateral increased interstitial markings as discussed above - Medical Decision Making This patient presents to the emergency department with complaint of some nausea and vomiting, generalized fatigue and weakness, and some recent weight loss. She appears very pale. Hemoglobin came back at 3.7. Patient also has thrombocytopenia with a platelet count of 67. There is also an elevated bilirubin level of 2.9 and slightly elevated AST of 80. 1 unit of packed red blood cells was ordered as per the hospital protocol but the patient will most likely need further transfusions. CT of the abdomen and pelvis with IV contrast did not show any acute process other than some pulmonary edema. Patient will be admitted to the hospital for further evaluation and treatment was accepted for admission by the hospitalist, Dr. Wall. Critical Care Time: Yes Critical care time in (mins) excluding proc time.: 31 Critical care attestation.: If time is entered above; I have spent that time in minutes in the direct care of this critically ill patient, excluding procedure time. Critical care time is spent on this patient in doing her initial evaluation, multiple re-evaluations, ordering and interpretation of labs and imaging, ordering of blood for transfusion. Critical Care Time: 31 minutes ED Disposition Clinical Impression: Anemia requiring transfusions, Thrombocytopenia, Elevated bilirubin Anemia Qualifiers: Anemia type: unspecified type Qualified Code(s): D64.9 - Anemia, unspecified Disposition: 09 OP ADMIT IP TO THIS HOSP Is pt being admited?: Yes Condition: Serious Time of Disposition: 22:59
--- NOTE | 2020-01-23 22:49 | Cat Scan Report ---
CT ABDOMEN AND PELVIS WITH CONTRAST INDICATION / CLINICAL INFORMATION: N/V, no appetite, weight loss, abd bloating. TECHNIQUE: Axial CT images were obtained through the abdomen and pelvis after 100 cc Omnipaque 300 milligrams pe rcent IV contrast. All CT scans at this location are performed using CT dose reduction for ALARA by means of automated exposure control. COMPARISON: None available. FINDINGS: LOWER CHEST: Increased bronchovascular markings-septal markings with minimum airspace changes LIVER: No significant abnormality. GALLBLADDER: No significant abnormality. BILE DUCTS: No significant abnormality. PANCREAS: No significant abnormality. SPLEEN: No significant abnormality. ADRENALS: No significant abnormality. RIGHT KIDNEY and URETER: No significant abnormality. LEFT KIDNEY and URETER: No significant abnormality. STOMACH and SMALL BOWEL: No significant abnormality. COLON: No significant abnormality. APPENDIX: Previous appendectomy PERITONEUM: No free fluid. No free air. No fluid collection. LYMPH NODES: No significant adenopathy. AORTA and ARTERIES: No significant abnormality. IVC and VEINS: No significant abnormality. URINARY BLADDER: No significant abnormality. REPRODUCTIVE ORGANS: No significant abnormality. ADDITIONAL FINDINGS: None. SKELETAL SYSTEM: No significant abnormality. IMPRESSION: 1. Mild pulmonary edema No acute abdominal and pelvic pathology by CT criteria. Signer Name: Frandy Davalos MD Signed: 01/23/2020 10:45 PM Workstation Name: [id number]
--- NOTE | 2020-01-23 23:16 | XRay Report ---
CHEST 1 VIEW 2247 INDICATION / CLINICAL INFORMATION: MAIN COMPARISON: CT abdomen and pelvis today and 01/15/2018 FINDINGS: SUPPORT DEVICES: None HEART / MEDIASTINUM: Mild cardiomegaly LUNGS / PLEURA: Diffuse increased interstitial markings are seen. As seen in the lung bases on CT esther dies today and in 2018, some chronic interstitial changes are noted. However, I suspect there is also superimposed interstitial edema. Interstitial pneumonitis is not completely excluded. Mild bibasilar atelectatic changes are seen. No dense areas of consolidation are noted though atelectasis is more p rominent in the left base as seen on CT today. No pneumothorax. ADDITIONAL FINDINGS: No significant additional findings. IMPRESSION: Bilateral increased interstitial markings as discussed above Signer Name: Orestes Rico MD Signed: 01/23/2020 11:12 PM Workstation Name: [id number]
[2020-01-24] MEDS ORDERED: SODIUM CHLORIDE 0.9% 500 ML 500 ML ONE (00:13)
[2020-01-24] MEDS ORDERED: ACETAMINOPHEN 325 MG TAB PO PRN (00:29)
[2020-01-24] MEDS ORDERED: MORPHINE 2 MG/1 ML INJ IV PRN (00:29)
[2020-01-24] MEDS ORDERED: MAGNESIUM HYDROXIDE (MOM) ORAL LIQD UDC PO PRN (00:29)
[2020-01-24] MEDS ORDERED: ONDANSETRON 4 MG/2 ML INJ IV PRN (00:29)
--- NOTE | 2020-01-24 02:16 | History and Physical Report ---
History of Present Illness Date of examination: 01/24/20 Date of admission: 01/23/20 22:59 Chief complaint: Nausea and vomiting History of present illness: 69-year-old female with significant past medical history of hypertension but currently not on any medication presenting to the emergency room today complaining of nausea and vomiting, generalized weakness and fatigue and weight loss. She indicates she has lost about 30 to 40 pounds over the past 2 months. Nausea and vomiting denies gotten worse over the past few days and has also lost appetite. She has had some abdominal bloating but denies any abdominal pain. Patient denies any fever or chills, no flank pain no dysuria, no hematuria, denies any rectal bleeding or melena stool. Work-up in the emergency room today reveals a hemoglobin of about 3.[address] scan of the abdomen and pelvis was unremarkable. Patient has been scheduled for blood transfusion. Past History Past Medical History: No medical history Past Surgical History: No surgical history Social history: no significant social history Family history: no significant family history Medications and Allergies Allergies Allergy/AdvReac Type Severity Reaction Status Date / Time piperacillin [From Zosyn] Allergy Rash Verified 01/18/18 11:35 tazobactam [From Zosyn] Allergy Rash Verified 01/18/18 11:35 Home Medications Medication Instructions Recorded Confirmed Last Taken Type Atenolol [Tenormin] 100 mg PO DAILY 01/17/18 01/17/18 Unknown History levoFLOXacin [Levaquin] 750 mg PO QDAY #14 tablet 01/20/18 Unknown Rx metroNIDAZOLE [Flagyl] 500 mg PO Q8HR 14 Days tablet 01/20/18 Unknown Rx Active Meds: Active Medications Acetaminophen (Tylenol) 650 mg PO Q4H PRN PRN Reason: Pain MILD(1-3)/Fever >100.5/KIN[place]Y Magnesium Hydroxide (Milk Of Magnesia) 30 ml PO Q4H PRN PRN Reason: Constipation Morphine Sulfate (Morphine) 2 mg IV Q4H PRN PRN Reason: Pain, Moderate (4-6) Ondansetron HCl (Zofran) 4 mg IV Q8H PRN PRN Reason: Nausea And Vomiting Sodium Chloride (Sodium Chloride Flush Syringe 10 Ml) 10 ml IV BID MIR Sodium Chloride (Sodium Chloride Flush Syringe 10 Ml) 10 ml IV PRN PRN PRN Reason: LINE FLUSH Review of Systems Constitutional: no fever, no chills Ears, nose, mouth and throat: no nasal congestion, no sore throat Cardiovascular: no chest pain, no palpitations Respiratory: no cough, no shortness of breath Gastrointestinal: nausea, vomiting, no abdominal pain, no BRBPR, no melena Genitourinary Female: no pelvic pain, no flank pain, no dysuria, no hematuria Musculoskeletal: no neck pain, no low back pain Integumentary: no rash, no pruritis Neurological: no headaches, no confusion Psychiatric: no anxiety, no depression Exam - Constitutional Vitals: Temp Pulse Resp BP Pulse Ox 98.1 F 88 18 104/46 98 01/24/20 01:42 01/24/20 01:42 01/24/20 01:42 01/24/20 01:42 01/24/20 01:42 General appearance: Present: no acute distress, well-nourished - EENT Eyes: Present: PERRL, EOM intact. Absent: scleral icterus ENT: hearing intact, clear oral mucosa, dentition normal - Neck Neck: Present: supple, normal ROM - Respiratory Respiratory effort: normal Respiratory: bilateral: CTA - Cardiovascular Rhythm: regular Heart Sounds: Present: S1 & S2. Absent: gallop, systolic murmur, diastolic murmur, rub - Extremities Extremities: no ischemia, pulses intact, pulses symmetrical, No edema, Full ROM Peripheral Pulses: within normal limits - Abdominal General gastrointestinal: Present: soft, non-tender, non-distended, normal bowel sounds. Absent: mass - Integumentary Integumentary: Present: clear, warm, dry - Musculoskeletal Musculoskeletal: strength equal bilaterally - Psychiatric Psychiatric: appropriate mood/affect, intact judgment & insight, memory intact, cooperative - Neurologic Neurologic: CNII-XII intact, no focal deficits, moves all extremities Results - Labs CBC & Chem 7: 01/23/20 18:57 01/23/20 18:57 Labs: Abnormal lab results 01/23/20 01/23/20 01/23/20 Range/Units 18:16 18:57 18:57 RBC 0.78 L (3.65-5.03) M/mm3 Hgb 3.7 L* (10.1-14.3) gm/dl Hct 10.9 L* (30.3-42.9) % MCV 140 H (79-97) fl MCH 47 H (28-32) pg RDW 31.2 H (13.2-15.2) % Plt Count 69 L (140-440) K/mm3 Sodium 134 L (137-145) mmol/L Chloride 96.6 L (98-107) mmol/L Carbon Dioxide 20 L (22-30) mmol/L BUN 20 H (7-17) mg/dL Glucose 147 H (65-100) mg/dL Total Bilirubin 2.90 H (0.1-1.2) mg/dL AST 81 H (5-40) units/L Urine WBC (Auto) 7.0 H (0.0-6.0) /HPF Crossmatch 01/23/20 Range/Units 20:10 RBC (3.65-5.03) M/mm3 Hgb (10.1-14.3) gm/dl Hct (30.3-42.9) % MCV (79-97) fl MCH (28-32) pg RDW (13.2-15.2) % Plt Count (140-440) K/mm3 Sodium (137-145) mmol/L Chloride (98-107) mmol/L Carbon Dioxide (22-30) mmol/L BUN (7-17) mg/dL Glucose (65-100) mg/dL Total Bilirubin (0.1-1.2) mg/dL AST (5-40) units/L Urine WBC (Auto) (0.0-6.0) /HPF Crossmatch See Detail Assessment and Plan - Patient Problems (1) Anemia Current Visit: Yes Status: Acute Qualifiers: Anemia type: unspecified type Qualified Code(s): D64.9 - Anemia, unspecified Plan to address problem: Etiology is unclear however patient has been scheduled for blood transfusion. Will check iron studies and also check folic acid and vitamin B12 levels. We will consider GI and hematology evaluation prior to discharge. (2) Elevated bilirubin Current Visit: Yes Status: Acute Plan to address problem: Etiology still unclear. We will monitor bilirubin level. (3) Thrombocytopenia Current Visit: Yes Status: Acute Plan to address problem: We will monitor platelet level. Will transfuse if needed. (4) DVT prophylaxis Current Visit: Yes Status: Acute Plan to address problem: Patient placed on sequential compression device. (5) Full code status Current Visit: Yes Status: Acute
[2020-01-24 07:56] LABS: Hematocrit 15.7 % (30.3-42.9); Hemoglobin 5.4 gm/dl (10.1-14.3)
[2020-01-24] MEDS ORDERED: SODIUM CHLORIDE 0.9% 500 ML 500 ML IV NR (08:30)
[2020-01-24 09:00] LABS: Iron 217 ug/dL (37-170); Total Iron Binding Capacity 219 mcg/dL (250-450)
--- NOTE | 2020-01-24 10:18 | Progress Note ---
Assessment and Plan Assessment and plan: -- Anemia; Hb 3.7 Current Visit: Yes Status: Acute Patient received 1 unit of PRBC yesterday hemoglobin improved to 5.4 Additional 1 more unit of PRBC today closely monitor stool for occult blood GI evaluation if needed, follow iron profile study and vitamin B12 and folic acid -- Elevated bilirubin Current Visit: Yes Status: Acute Etiology still unclear. We will monitor bilirubin level. --Transaminitis; elevated AST Closely monitor and trend LFTs Consider GI evaluation if no improvement -- Thrombocytopenia Current Visit: Yes Status: Acute We will monitor platelet level. Will transfuse if needed. --DVT prophylaxis Current Visit: Yes Status: Acute Patient placed on sequential compression device. -- Full code status Current Visit: Yes Status: Acute Monitor closely and adjust the management as needed Plan of care reviewed with the patient's nurse and the patient History Interval history: I have seen and examined the patient at the bedside this morning Patient's chart medications reviewed Admitted with severe anemia of hemoglobin 3.7 Received 1 unit PRBC improved to 5.4 Patient complains of generalized weakness Hospitalist Physical - Constitutional Vitals: Temp Pulse Resp BP Pulse Ox 97.6 F 88 18 112/70 98 01/24/20 03:33 01/24/20 04:05 01/24/20 03:33 01/24/20 03:33 01/24/20 08:38 General appearance: Present: no acute distress, well-nourished - EENT Eyes: Present: PERRL, EOM intact - Neck Neck: Present: supple, normal ROM - Respiratory Respiratory effort: normal Respiratory: bilateral: diminished, negative: rales, rhonchi, wheezing - Cardiovascular Rhythm: regular Heart Sounds: Present: S1 & S2 - Extremities Extremities: no ischemia, No edema - Abdominal General gastrointestinal: soft, non-tender, non-distended, normal bowel sounds - Integumentary Integumentary: Present: clear, warm - Psychiatric Psychiatric: appropriate mood/affect, cooperative - Neurologic Neurologic: CNII-XII intact, moves all extremities Results - Labs CBC & Chem 7: 01/24/20 19:01 01/23/20 18:57 Labs: Laboratory Last Values WBC 7.0 K/mm3 (4.5-11.0) 01/23/20 18:57 RBC 0.78 M/mm3 (3.65-5.03) L 01/23/20 18:57 Hgb 5.4 gm/dl (10.1-14.3) L* 01/24/20 06:42 Hct 15.7 % (30.3-42.9) L* 01/24/20 06:42 MCV 140 fl (79-97) H 01/23/20 18:57 MCH 47 pg (28-32) H 01/23/20 18:57 MCHC 34 % (30-34) 01/23/20 18:57 RDW 31.2 % (13.2-15.2) H 01/23/20 18:57 Plt Count 69 K/mm3 (140-440) L 01/23/20 18:57 Add Manual Diff Complete 01/23/20 18:57 Total Counted 100 01/23/20 18:57 Seg Neuts % (Manual) 61.0 % (40.0-70.0) 01/23/20 18:57 Band Neutrophils % 0 % 01/23/20 18:57 Lymphocytes % (Manual) 34.0 % (13.4-35.0) 01/23/20 18:57 Reactive Lymphs % (Man) 0 % 01/23/20 18:57 Monocytes % (Manual) 5.0 % (0.0-7.3) 01/23/20 18:57 Eosinophils % (Manual) 0 % (0.0-4.3) 01/23/20 18:57 Basophils % (Manual) 0 % (0.0-1.8) 01/23/20 18:57 Metamyelocytes % 0 % 01/23/20 18:57 Myelocytes % 0 % 01/23/20 18:57 Promyelocytes % 0 % 01/23/20 18:57 Blast Cells % 0 % 01/23/20 18:57 Nucleated RBC % Not Reportable 01/23/20 18:57 Seg Neutrophils # Man 4.3 K/mm3 (1.8-7.7) 01/23/20 18:57 Band Neutrophils # 0.0 K/mm3 01/23/20 18:57 Lymphocytes # (Manual) 2.4 K/mm3 (1.2-5.4) 01/23/20 18:57 Abs React Lymphs (Man) 0.0 K/mm3 01/23/20 18:57 Monocytes # (Manual) 0.4 K/mm3 (0.0-0.8) 01/23/20 18:57 Eosinophils # (Manual) 0.0 K/mm3 (0.0-0.4) 01/23/20 18:57 Basophils # (Manual) 0.0 K/mm3 (0.0-0.1) 01/23/20 18:57 Metamyelocytes # 0.0 K/mm3 01/23/20 18:57 Myelocytes # 0.0 K/mm3 01/23/20 18:57 Promyelocytes # 0.0 K/mm3 01/23/20 18:57 Blast Cells # 0.0 K/mm3 01/23/20 18:57 WBC Morphology Not Reportable 01/23/20 18:57 Hypersegmented Neuts Not Reportable 01/23/20 18:57 Hyposegmented Neuts Not Reportable 01/23/20 18:57 Hypogranular Neuts Not Reportable 01/23/20 18:57 Smudge Cells Not Reportable 01/23/20 18:57 Toxic Granulation Not Reportable 01/23/20 18:57 Toxic Vacuolation Not Reportable 01/23/20 18:57 Dohle Bodies Not Reportable 01/23/20 18:57 Pelger-Huet Anomaly Not Reportable 01/23/20 18:57 Nereida Rods Not Reportable 01/23/20 18:57 Platelet Estimate Not Reportable 01/23/20 18:57 Clumped Platelets Not Reportable 01/23/20 18:57 Plt Clumps, EDTA Not Reportable 01/23/20 18:57 Large Platelets Not Reportable 01/23/20 18:57 Giant Platelets Not Reportable 01/23/20 18:57 Platelet Satelliting Not Reportable 01/23/20 18:57 Plt Morphology Comment Not Reportable 01/23/20 18:57 RBC Morphology Not Reportable 01/23/20 18:57 Dimorphic RBCs Yes 01/23/20 18:57 Polychromasia Not Reportable 01/23/20 18:57 Hypochromasia Not Reportable 01/23/20 18:57 Poikilocytosis Not Reportable 01/23/20 18:57 Anisocytosis 3+ 01/23/20 18:57 Microcytosis Few 01/23/20 18:57 Macrocytosis 2+ 01/23/20 18:57 Spherocytes Few 01/23/20 18:57 Pappenheimer Bodies Not Reportable 01/23/20 18:57 Sickle Cells Not Reportable 01/23/20 18:57 Target Cells Not Reportable 01/23/20 18:57 Tear Drop Cells Not Reportable 01/23/20 18:57 Ovalocytes Not Reportable 01/23/20 18:57 Helmet Cells Not Reportable 01/23/20 18:57 [place] Bodies Not Reportable 01/23/20 18:57 [place] Rings Not Reportable 01/23/20 18:57 [place] Cells Not Reportable 01/23/20 18:57 Bite Cells Not Reportable 01/23/20 18:57 Crenated Cell Not Reportable 01/23/20 18:57 Elliptocytes Not Reportable 01/23/20 18:57 Acanthocytes (Spur) Not Reportable 01/23/20 18:57 Rouleaux Not Reportable 01/23/20 18:57 Hemoglobin C Crystals Not Reportable 01/23/20 18:57 Schistocytes Few 01/23/20 18:57 Malaria parasites Not Reportable 01/23/20 18:57 [place] Bodies Not Reportable 01/23/20 18:57 Hem Pathologist Commnt No 01/23/20 18:57 Sodium 134 mmol/L (137-145) L 01/23/20 18:57 Potassium 3.7 mmol/L (3.6-5.0) 01/23/20 18:57 Chloride 96.6 mmol/L (98-107) L 01/23/20 18:57 Carbon Dioxide 20 mmol/L (22-30) L 01/23/20 18:57 Anion Gap 21 mmol/L 01/23/20 18:57 BUN 20 mg/dL (7-17) H 01/23/20 18:57 Creatinine 1.0 mg/dL (0.6-1.2) 01/23/20 18:57 Estimated GFR 55 ml/min 01/23/20 18:57 BUN/Creatinine Ratio 20 % 01/23/20 18:57 Glucose 147 mg/dL (65-100) H 01/23/20 18:57 Calcium 8.7 mg/dL (8.4-10.2) 01/23/20 18:57 Iron 217 ug/dL (37-170) H 01/24/20 07:59 TIBC 219 mcg/dL (250-450) L 01/24/20 07:59 Total Bilirubin 2.90 mg/dL (0.1-1.2) H 01/23/20 18:57 AST 81 units/L (5-40) H 01/23/20 18:57 ALT 29 units/L (7-56) 01/23/20 18:57 Alkaline Phosphatase 75 units/L (35-129) 01/23/20 18:57 Total Protein 6.7 g/dL (6.3-8.2) 01/23/20 18:57 Albumin 4.2 g/dL (3.9-5) 01/23/20 18:57 Albumin/Globulin Ratio 1.7 % 01/23/20 18:57 Lipase 23 units/L (13-60) 01/23/20 18:57 Vitamin B12 150.0 pg/mL (211-911) L 01/24/20 07:59 Folate 15.04 ng/mL (7.3-26.0) 01/24/20 07:59 Urine Color Yellow (Yellow) 01/23/20 18:16 Urine Turbidity Clear (Clear) 01/23/20 18:16 Urine pH 5.0 (5.0-7.0) 01/23/20 18:16 Ur Specific [place] 1.017 (1.003-1.030) 01/23/20 18:16 Urine Protein <15 mg/dl mg/dL (Negative) 01/23/20 18:16 Urine Glucose (UA) Neg mg/dL (Negative) 01/23/20 18:16 Urine Ketones Neg mg/dL (Negative) 01/23/20 18:16 Urine Blood Neg (Negative) 01/23/20 18:16 Urine Nitrite Neg (Negative) 01/23/20 18:16 Urine Bilirubin Neg (Negative) 01/23/20 18:16 Urine Urobilinogen 2.0 mg/dL (<2.0) 01/23/20 18:16 Ur Leukocyte Esterase Mod (Negative) 01/23/20 18:16 Urine WBC (Auto) 7.0 /HPF (0.0-6.0) H 01/23/20 18:16 Urine RBC (Auto) 3.0 /HPF (0.0-6.0) 01/23/20 18:16 U Epithel Cells (Auto) 1.0 /HPF (0-13.0) 01/23/20 18:16 Hyaline Casts 1 /LPF 01/23/20 18:16 Urine Mucus Few /HPF 01/23/20 18:16 Blood Type O POSITIVE 01/23/20 20:10 Antibody Screen Negative 01/23/20 20:10 Crossmatch See Detail 01/23/20 20:10 Rodriguez/IV: Voiding Method Toilet IV Catheter Type [rt wrist] INT / Saline Lock Active Medications - Current Medications Current Medications: Generic Name Dose Route Start Last Admin Trade Name Freq PRN Reason Stop Dose Admin Acetaminophen 650 mg 01/24/20 00:29 Tylenol PO Q4H PRN Pain MILD(1-3)/Fever >100.5/K[place]Y Sodium Chloride 500 mls @ 0 mls/hr 01/24/20 08:30 Nacl 0.9% 500 Ml IV 01/24/20 12:30 ONCE NR As Directed Magnesium Hydroxide 30 ml 01/24/20 00:29 Milk Of Magnesia PO Q4H PRN Constipation Morphine Sulfate 2 mg 01/24/20 00:29 Morphine IV Q4H PRN Pain, Moderate (4-6) Ondansetron HCl 4 mg 01/24/20 00:29 Zofran IV Q8H PRN Nausea And Vomiting Sodium Chloride 10 ml 01/24/20 10:00 Sodium Chloride Flush Syringe 10 Ml IV BID MIR Sodium Chloride 10 ml 01/24/20 00:29 Sodium Chloride Flush Syringe 10 Ml IV PRN PRN LINE FLUSH
[2020-01-24 19:39] LABS: Hematocrit 21.2 % (30.3-42.9); Hemoglobin 7.4 gm/dl (10.1-14.3); Mean Corpuscular HGB Conc 35 % (30-34); Mean Corpuscular Volume 104 fl (79-97); Platelet Count 46 K/mm3 (140-440); Red Blood Count 2.05 M/mm3 (3.65-5.03); Red Cell Distribution Width 24.7 % (13.2-15.2)
[2020-01-25 13:18] VITALS: BP 111/72
[2020-01-25 13:43] LABS: Hematocrit 22.7 % (30.3-42.9)
--- NOTE | 2020-01-25 14:12 | Discharge Summary ---
Providers - Providers Date of Admission: 01/23/20 22:59 Date of discharge: 01/25/20 Attending physician: BG ZIEGLER 01/24/20 03:43 Consult to Dietitian/Nutrition [CONS] Routine Physician Instructions: Reason For Exam: Reason for Consult: Poor oral intake Primary care physician: JAQUI ZALDIVAR Hospitalization Condition: Serious Disposition: DC-01 TO HOME OR SELFCARE Time spent for discharge: 32 min Core Measure Documentation - Palliative Care Palliative Care/ Comfort Measures: Not Applicable - Core Measures Any of the following diagnoses?: none Exam - Constitutional Vitals: Temp Pulse Resp BP Pulse Ox 98.4 F 125 H 18 111/72 100 01/25/20 13:06 01/25/20 13:06 01/25/20 13:06 01/25/20 13:06 01/25/20 13:06 General appearance: Present: no acute distress, well-nourished - EENT Eyes: Present: PERRL, EOM intact - Neck Neck: Present: supple, normal ROM - Respiratory Respiratory effort: normal Respiratory: bilateral: diminished, negative: rales, rhonchi, wheezing - Cardiovascular Rhythm: regular Heart Sounds: Present: S1 & S2 - Extremities Extremities: no ischemia, No edema - Abdominal General gastrointestinal: Present: soft, non-tender, non-distended, normal bowel sounds - Integumentary Integumentary: Present: clear, warm - Musculoskeletal Musculoskeletal: strength equal bilaterally - Psychiatric Psychiatric: appropriate mood/affect, cooperative - Neurologic Neurologic: moves all extremities Plan Activity: advance as tolerated Diet: regular Additional Instructions: If you have worsening symptoms contact MD or go to emergency room. If you notice new episodes of GI bleeding contact MD or go to emergency room. Advised to follow private GI and private medical review coordinator for further evaluation of your anemia Follow up with: JAQUI ZALDIVAR MD [Primary Care Provider] - 7 Days AURORA LORD MD [Staff Physician] - 7 Days KRISTOFER MUELLER MD [Staff Physician] - 7 Days Prescriptions: Ferrous Sulfate [Iron 325 MG] 325 mg PO BID #60 tablet
== END 2020-01-25 16:06 | disposition home or self-care (01) | DRG 813 ==
LOC: ED 17:09 → 4A 22:59
PROVIDERS: ADMIT Internal Medicine Geriatric Medicine; ATTEND Internal Medicine
PROC: 30233Q1 Transfusion of Nonautologous White Cells into Peripheral Vein, Percutaneous Approach (ICD-10-PCS; principal; 2020-01-24)
DX: D69.6 Thrombocytopenia, unspecified (principal); D64.9 Anemia, unspecified; Z88.1 Allergy status to other antibiotic agents; Z88.8 Allergy status to other drugs, medicaments and biological substances
CPT/HCPCS: 36415; 71045; 74177; 80053; 81001; 82270; 82607; 82747; 83550; 83690; 85007; 85014; 85018; 85025; 85027; 86850; 86900; 86901; 86920; G0378; J7040; P9016; Q9967